=== PATIENT | female | born 1980 | race Caucasian/White ===

== ENCOUNTER 2025-04-29 15:54 | Emergency (ER) | payer OTHER ==
[~2025-04-29] VITALS: Wt 104.3 kg
[~2025-04-29 15:54] MED LIST: AUGMENTIN 875875 MG PO; CLARITIN10 MG PO; FLONASE 0.05% 121 EA NAS; OFLOXACIN OTIC5 ML OT; ZITHROMAX Z PA250 MG PO
== END 2025-04-29 18:37 | disposition home or self-care (01) ==
LOC: ED 15:54
DX: S93.602A Unspecified sprain of left foot, initial encounter (principal); F17.210 Nicotine dependence, cigarettes, uncomplicated; X58.XXXA Exposure to other specified factors, initial encounter; Y93.89 Activity, other specified; Y92.89 Other specified places as the place of occurrence of the external cause; Y99.8 Other external cause status